=== PATIENT | female | born 1960 | race Caucasian/White ===

== ENCOUNTER 2019-03-05 12:03 | Emergency (ER) | payer OTHER ==
[~2019-03-05] VITALS: Ht 165.1 cm; Wt 70.3 kg
[2019-03-05 12:14] VITALS: BP_SYST 124
[2019-03-05] MEDS ORDERED: LIDOCAINE 1% 10 MG/ML, 20 ML MDV INJ ONE (14:30)
[2019-03-05] MEDS ORDERED: ACETAMINOPHEN 325 MG TABLET PO ONE (14:30)
[2019-03-05] MEDS ORDERED: DIPH-TET-PERTUS Vaccine 0.5 ML VIAL (ADACEL) I.M. ONE (14:30)
[2019-03-05 15:30] VITALS: BP_SYST 124
[2019-03-05] MEDS ORDERED: BACITRACIN 1 GM OINT TP ONE (15:45)
[2019-03-05] MEDS ORDERED: BACITRACIN ZINC 15 GM TOPICAL OINTMENT TP SCH (21:00)
== END 2019-03-05 15:30 | disposition home or self-care (01) ==
LOC: SED 12:03
DX: S61.412A Laceration without foreign body of left hand, initial encounter (principal); S60.511A Abrasion of right hand, initial encounter; X58.XXXA Exposure to other specified factors, initial encounter; Y93.89 Activity, other specified; Y92.89 Other specified places as the place of occurrence of the external cause; Y99.8 Other external cause status
CPT/HCPCS: 12002; 73110; 73130; 90471; 90715; 99283; J2001